=== PATIENT | female | born 1995 | race Caucasian/White ===

== ENCOUNTER 2021-01-25 10:10 | Outpatient (REF) | payer OTHER, SELFPAY ==
[2021-01-25 10:58] LABS: MANUAL DIFF FLAG NO
[2021-01-25 11:05] LABS: Basophils Percent Auto 0.6 % (0-2); Eosinophils Absolute Auto 0.1 X10*3/uL (0.0-0.4); Eosinophils Percent Auto 1.5 % (0-4); Hematocrit 36.1 % (37-47); Imm Gran Abs Auto 0.03 X10*3/uL (0.00-0.03); Imm Gran Pct Auto 0.4 % (0.0-0.4); Lymphocytes Absolute Auto 2.2 X10*3/uL (1.2-4.9); Lymphocytes Percent Auto 30.8 % (20-40); Mean Corpuscular HGB Conc 33.2 g/dl (31.0-35.0); Mean Corpuscular Hemoglobin 30.2 pg (27.0-33.0); Mean Corpuscular Volume 90.7 fL (80-98); Mean Platelet Volume 10.8 fL (9.4-12.3); Monocytes Absolute Auto 0.3 X10*3/uL (0.1-1.2); Monocytes Percent Auto 4.6 % (2-11); Neutrophils Absolute Auto 4.5 X10*3/uL (2.0-8.3); Neutrophils Percent Auto 62.1 % (45-73); Platelet Count 295 X10*3/uL (160-400); Red Blood Count 3.98 X10*6/uL (4.20-5.50); Red Cell Distribution Width 12.5 % (11.0-16.0); White Blood Count 7.2 X10*3/uL (4.8-10.8)
[2021-01-25 11:23] LABS: Alanine Aminotransferase 11 U/L (0-31); Albumin Level 4.5 g/dL (3.5-5.0); Alkaline Phosphatase 47 U/L (39-117); Anion Gap 12 (12-20); Aspartate Amino Transferase 11 U/L (5-31); Bilirubin Total 0.6 mg/dL (0.0-1.0); Blood Urea Nitrogen 9 mg/dL (9-16); Calcium 9.5 mg/dL (8.4-10.2); Carbon Dioxide 24 mmol/L (22-29); Chloride 107 mmol/L (96-108); Cholesterol 146 mg/dL; Estimated Glomerular Filt Rate > 60; Glucose Fasting 85 mg/dL (60-99); HDL Cholesterol 48 mg/dL; Iron 98 mcg/dL (30-160); LDL Cholesterol Calculated 89 mg/dl; Percent Iron Saturation 30 % (15-50); Potassium 4.8 mmol/L (3.3-5.1); Sodium 138 mmol/L (135-145); Total Iron Binding Capacity 332 mcg/dL (228-428); Total Protein 7.4 g/dL (6.5-8.0); Triglycerides 48 mg/dL; Unsaturated Iron Binding 234 ug/dL
[2021-01-25 11:41] LABS: Estimated Average Glucose 88 mg/dL; Hemoglobin A1c % 4.7 %
[2021-01-25 11:46] LABS: Ferritin 18 ng/mL (10-122); TSH reflex Free T4 0.94 uIU/mL (0.32-4.0); Vitamin D 25-OH Total 15.1 ng/mL (>30)
[2021-01-25 12:13] LABS: Folate 11.7 ng/mL (> or = 4.0); Vitamin B12 292 pg/mL (200-900)
[2021-01-25 13:45] LABS: Glucose Urine UA NEG (NEG); Leukocyte Esterase Urine NEG (NEG); Nitrite Urine NEG (NEG); Urine Blood NEG (NEG); Urine Ketones NEG (NEG); Urine Protein NEG (NEG-TRACE)
[2021-01-25 13:55] LABS: Appearance Urine CLEAR; Color Urine STRAW
== END 2021-01-25 10:11 | disposition home or self-care (01) ==
LOC: HO.LAB 10:10
PROVIDERS: PCP Internal Medicine; Visit Provider Nurse Practitioner Family
DX: R25.1 Tremor, unspecified (principal); Z13.1 Encounter for screening for diabetes mellitus
CPT/HCPCS: 36415; 80053; 80061; 81003; 82306; 82607; 82728; 82746; 83036; 83540; 84443; 85025

== ENCOUNTER 2021-02-15 09:30 | Outpatient (REF) | payer OTHER, SELFPAY ==
[2021-02-16 02:04] LABS: CT PCR NOT DETECTED (Not Detect.); NG PCR NOT DETECTED (Not Detect.)
[2021-02-16 13:35] LABS: BV Int Neg Control Negative (Negative); BV Int Pos Control Positive (Positive)
== END 2021-02-15 09:31 | disposition home or self-care (01) ==
LOC: HO.LAB 09:30
PROVIDERS: Visit Provider Advanced Practice Midwife
DX: Z01.411 Encounter for gynecological examination (general) (routine) with abnormal findings (principal); Z11.3 Encounter for screening for infections with a predominantly sexual mode of transmission; N89.8 Other specified noninflammatory disorders of vagina; Z20.2 Contact with and (suspected) exposure to infections with a predominantly sexual mode of transmission
CPT/HCPCS: 87480; 87491; 87510; 87591; 87660; 88142

== ENCOUNTER 2021-02-18 11:52 | Outpatient (REF) | payer OTHER, SELFPAY ==
--- NOTE | ~2021-02-18 | XR_ITS ---
EXAMINATION: XR LUMBOSACRAL SPINE CLINICAL INFORMATION: Lower back pain. COMPARISON: None TECHNIQUE: Three views of the lumbosacral spine. FINDINGS: The vertebral bodies and posterior elements are normal. The disc spaces are preserved and the vertebral alignment is normal. The paraspinal soft tissues are normal. XR/XR lumbar spine 2-3V IMPRESSION: Unremarkable examination.
== END 2021-02-18 11:53 | disposition home or self-care (01) ==
LOC: HO.XRAY 11:52
PROVIDERS: PCP Internal Medicine; Visit Provider Internal Medicine
DX: M54.5 Low back pain (principal)
CPT/HCPCS: 72100

== ENCOUNTER 2021-04-02 08:09 | Outpatient (REF) | payer OTHER, SELFPAY ==
[2021-04-05 12:21] LABS: TS Negative Control Passed; TS Panel A 0; TS Panel B 2; TS Positive Control Passed; TSpotTB Negative (SeeBelow)
== END 2021-04-02 08:10 | disposition home or self-care (01) ==
LOC: HO.LAB 08:09
PROVIDERS: PCP Internal Medicine; Visit Provider Internal Medicine
DX: Z11.1 Encounter for screening for respiratory tuberculosis (principal)
CPT/HCPCS: 36415; 86481

== ENCOUNTER 2021-11-28 11:13 | Outpatient (REF) | payer OTHER, SELFPAY | END 2021-11-28 11:14 | disposition home or self-care (01) | LOC: HO.LAB 11:13 | PROVIDERS: Visit Provider Advanced Practice Midwife | DX: Z12.4 Encounter for screening for malignant neoplasm of cervix (principal); N94.89 Other specified conditions associated with female genital organs and menstrual cycle; R14.0 Abdominal distension (gaseous); Z87.42 Personal history of other diseases of the female genital tract | CPT/HCPCS: 88142; 99212 ==

== ENCOUNTER 2022-04-08 10:50 | Outpatient (REF) | payer OTHER, SELFPAY ==
[2022-04-08 12:34] LABS: Vitamin D 25-OH Total 16.3 ng/mL (>30)
[2022-04-08 12:44] LABS: Alanine Aminotransferase 8 U/L (0-31); Albumin Level 4.4 g/dL (3.5-5.0); Alkaline Phosphatase 41 U/L (39-117); Anion Gap 14 (12-20); Aspartate Amino Transferase 8 U/L (5-31); Bilirubin Total 0.5 mg/dL (0.0-1.0); Blood Urea Nitrogen 7 mg/dL (9-16); Calcium 9.4 mg/dL (8.4-10.2); Carbon Dioxide 22 mmol/L (22-29); Chloride 108 mmol/L (96-108); Cholesterol 142 mg/dL; Estimated Glomerular Filt Rate > 60; Glucose Fasting 81 mg/dL (60-99); HDL Cholesterol 40 mg/dL; LDL Cholesterol Calculated 89 mg/dl; Potassium 4.7 mmol/L (3.3-5.1); Sodium 139 mmol/L (135-145); Total Protein 7.2 g/dL (6.5-8.0); Triglycerides 65 mg/dL
[2022-04-08 13:26] LABS: Folate 13.1 ng/mL (> or = 4.0); Vitamin B12 462 pg/mL (200-900)
== END 2022-04-08 10:51 | disposition home or self-care (01) ==
LOC: HO.LAB 10:50
PROVIDERS: PCP Internal Medicine; Visit Provider Internal Medicine
DX: Z00.00 Encounter for general adult medical examination without abnormal findings (principal); E53.8 Deficiency of other specified B group vitamins; E55.9 Vitamin D deficiency, unspecified
CPT/HCPCS: 36415; 80053; 80061; 82306; 82607; 82746

== ENCOUNTER 2023-04-06 08:49 | Outpatient (AMB) | payer OTHER, SELFPAY ==
--- NOTE | 2023-04-06 08:52 | MHC.PC.OV ---
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 Accompanied by: Self / Same As Patient Allergies No Known Allergies Allergy (Verified 04/06/23 09:02) Medication List - Last Reconciled 04/06/23 by Rosy Melchor MD cetirizine (Zyrtec) 10 mg PO DAILY PRN cholecalciferol (vitamin D3) 25 mcg PO DAILY 90 days Tobacco use date assessed: 04/06/23 Dental Screening Dental Screen Date: 04/06/23 Did you have a dental visit in the last 12 months?: Yes Did you have a dental problem in the last 6 months where you did not have access to dental care?: No Was dental information given to patient?: Patient has dentist HPI HPI Comments History of Present Illness Details This is a 27-year-old female that comes for her physical exam. Last Pap smear was November 2021. No chest pain or shortness of breath. Doing well. [facility] Medical History ADHD Allergic rhinitis Hypovitaminosis D Insomnia Lumbar pain Screening for diabetes mellitus Shaky Surgical History No pertinent past surgical history Family History Father No problems noted. Mother Alive and well Osteoporosis Maternal Grandmother Diabetes Maternal Grandfather Diabetes Paternal Grandmother Diabetes Hypertension Paternal Grandfather Diabetes Hypertension Paternal Aunt Thyroid cancer Family/Other Anxiety Social History Housing: House Alcohol intake: never Patient Tobacco Use Status: Former Tobacco user e-Cigarette/Vaping Use: Former Use Second Hand Smoke Exposure: No service: No Current occupational status: employed and student Current occupational exposures/hazards: No Cognitive needs: No Hearing needs: No Vision needs: Yes Female Reproductive History Menstrual Age of Menarche: 9 Questionnaire PHQ-9 Over the last 2 weeks, how often have you been bothered by any of the following problems? 1. Little interest or pleasure in doing things: not at all 2. Feeling down, depressed, or hopeless: several days 3. Trouble falling or staying asleep, or sleeping too much: not at all 4. Feeling tired or having little energy: not at all 5. Poor appetite or overeating: not at all 6. Feeling bad about yourself - or that you are a failure or have let yourself or your family down: not at all 7. Trouble concentrating on things, such as reading the newspaper or watching television: not at all 8. Moving or speaking so slowly that other people could have noticed. Or the opposite - being so fidgety or restless that you have been moving around a lot more than usual: not at all 9. Thoughts that you would be better off or of hurting yourself in some way: not at all Total score: 1 Depression Screening Interpretation: Negative 17715 - PHQ-9 Billing: Yes Source: Developed by Drs. Romario Millan, Chary Decker, Genaro Goodwin and colleagues, with an educational mireya from [employer]. Thrive Questionnaire Date Thrive assessed: 04/06/23 I am a: Patient What is your living situation today?: I have a steady place to live Within the past 12 months, did the food you bought not last and you didn't have the money to get more?: Never true Within the past 12 months, did you worry whether your food would run out before you got money to buy more?: Never true Do you have trouble paying for medicines?: No Do you have trouble getting transportation to medical appointments?: No Do you have trouble paying your heating and electricity bill?: No Do you have trouble taking care of your child, family member or friend?: No Do you have trouble with day-to-day activities such as bathing, preparing meals, shopping, managing finances, etc.?: No Are you currently unemployed and looking for a job?: No Are you interested in more education?: No Please select the resources that you would like help with: None Currently or been in a relationship where the following occur: no concerns reported AUDIT C Alcohol Use Questionnaire (AUDIT-C) 1. How often do you have a drink containing alcohol?: Never Total Score: 0 Score Reviewed/Action Taken: No FIONA-7 AMB Questionnaire FIONA-7 Date FIONA - 7 assessed: 04/06/23 Feeling nervous, anxious, or on edge: 0 = Not at all Not being able to stop or control worryin = Not at all Worrying too much about different things: 0 = Not at all Trouble relaxin = Not at all Being so restless that it is hard to sit still: 0 = Not at all Becoming easily annoyed or irritable: 0 = Not at all Feeling afraid as if something awful might happen: 0 = Not at all Total FIONA-7 score (0-4 normal; 5-9 mild; 10-14 moderate; 15-21 severe): 0 Source: Developed by Drs. Romario Millan, Chary Decker, Genaro Goodwin and colleagues, with an educational mireya from [employer]. FIONA-7 Assessment Billing FIONA-7 Assessment Tool: FIONA-7 Assessment 37184 Review of Systems Const All systems reviewed & are unremarkable except as noted in HPI and below Eyes Reports no additional complaints, Denies change in vision and Denies other visual disturbances Card Denies chest pain at rest, Denies chest pain with activity, Denies edema, Denies irregular heart rhythm, Denies claudication, Denies dyspnea, Denies dyspnea on exertion, Denies orthopnea, Denies paroxysmal nocturnal dyspnea and Denies slow heart rate Resp Denies cough, Denies dyspnea and Denies dyspnea on exertion GI Denies abdominal pain, Denies change in bowel habits, Denies excessive flatus, Denies nausea and Denies vomiting Denies urinary incontinence, Denies urinary hesitancy and Denies urinary urgency Musc Denies abnormal gait, Denies atrophy, Denies deformity and Denies limited range of motion Skin/Breast Denies bleeding lesions, Denies changing lesions and Denies rash Neuro Denies abnormal gait and Denies lack of coordination Physical exam (Primary Care) Vital Signs: Last Vital Signs BP 102/64 04/06/23 08:54 BMI result Body Mass Index 25.3 Tobacco/Smoking Status: Tobacco use Status Tobacco use date assessed 04/06/23 04/06/23 08:58 Patient Tobacco Use Status Former Tobacco user 04/06/23 08:58 e-Cigarette/Vaping Use Former Use 04/06/23 08:58 PHQ-9: PHQ-9 Score PHQ-9: Total score 1 04/06/23 08:58 Depression Screening Interpretation: Negative Thrive Assessment: Date of Thrive Assessment Date Thrive assessed 04/06/23 04/06/23 08:58 Currently or been in a relationship where the following occur: no concerns reported Const Orientation/consciousness: patient oriented x3 HENMT Head: Yes normal to inspection, Yes normocephalic and Yes atraumatic Ears: external ears normal Eyes General: appearance normal, both eyes and all related structures Eyelids: Yes eyelids normal Conjunctivae: conjunctivae normal Neck Neck: Yes normal visual inspection and Yes supple Resp Effort & Inspection: normal respiratory effort Auscultation: clear to auscultation bilaterally Cardio Jugular venous distension: no JVD Rate: regular rate Rhythm: regular rhythm Heart sounds: S1 normal heart sound present and S2 normal heart sound present GI Inspection: Yes normal to inspection Palpation (GI): Soft to palpation and nontender Auscultation: normal bowel sounds Skin General skin exam: no rashes or lesions noted Neuro General: patient oriented x3 and no focal motor deficits Extrem General: Yes full ROM Psych Appearance: grossly normal Assessment and Plan Assessment & Plan (1) Encounter for physical examination: Code(s): Z00.00 - Encounter for general adult medical examination without abnormal findings Plan: Repeat in a year. Orders: Orders Vitamin B12 and Folate Today E53.8 - Deficiency of other specified B group vitamins Comprehensive [place]. Panel Fast Today Z00.00 - Encounter for general adult medical examination without abnormal findings IRON PROFILE Today D64.9 - Anemia, unspecified Lipid Panel Today E78.5 - Hyperlipidemia, unspecified, Z00.00 - Encounter for general adult medical examination without abnormal findings Vitamin D 25-OH Total Today E55.9 - Vitamin D deficiency, unspecified Complete Blood Count Auto Diff Today D64.9 - Anemia, unspecified Hepatitis B Profile Today Z23 - Encounter for immunization Mumps Virus IgG Antibody Today Z23 - Encounter for immunization Rubeola IgG (Measles) Today Z23 - Encounter for immunization Rubella IgG Antibody Today Z23 - Encounter for immunization T Spot TB Today Z11.1 - Encounter for screening for respiratory tuberculosis Varicella IgG Antibody Today Z23 - Encounter for immunization Coding Level of Care Code Est Pt Prev Care 18-39y(93455) Diagnoses Encounter for physical examination Z00.00 Additional Codes FIONA-7 Assessment Billing - FIONA-7 Assessment Tool: FIONA-7 Assessment 70570 ([id number]) Time Spent (min) 31
[2023-04-06 08:54] VITALS: BP 102/64; BMI 25.3
== END 2023-04-06 09:12 | disposition home or self-care (01) ==
PROVIDERS: PCP Internal Medicine; Visit Provider Internal Medicine
DX: Z00.00 Encounter for general adult medical examination without abnormal findings (principal)
CPT/HCPCS: 99395

== ENCOUNTER 2023-04-07 09:12 | Outpatient (REF) | payer OTHER, SELFPAY ==
[2023-04-07 09:27] LABS: MANUAL DIFF FLAG NO
[2023-04-07 10:17] LABS: Basophils Percent Auto 0.6 % (0-2); Eosinophils Absolute Auto 0.1 X10*3/uL (0.0-0.4); Eosinophils Percent Auto 1.8 % (0-4); Hematocrit 36.5 % (37.0-47.0); Imm Gran Abs Auto 0.01 X10*3/uL (0.00-0.03); Imm Gran Pct Auto 0.1 % (0.0-0.4); Lymphocytes Absolute Auto 2.1 X10*3/uL (1.2-4.9); Lymphocytes Percent Auto 31.5 % (20-40); Mean Corpuscular HGB Conc 32.9 g/dl (31.0-35.0); Mean Corpuscular Hemoglobin 30.3 pg (27.0-33.0); Mean Corpuscular Volume 92.2 fL (80.0-98.0); Mean Platelet Volume 10.8 fL (9.4-12.3); Monocytes Absolute Auto 0.5 X10*3/uL (0.1-1.2); Monocytes Percent Auto 6.6 % (2-11); Neutrophils Percent Auto 59.4 % (45-73); Platelet Count 250 X10*3/uL (160-400); Red Blood Count 3.96 X10*6/uL (4.20-5.50); Red Cell Distribution Width 12.1 % (11.0-16.0); White Blood Count 6.8 X10*3/uL (4.8-10.8)
[2023-04-07 11:03] LABS: Alanine Aminotransferase 13 U/L (0-31); Albumin Level 4.2 g/dL (3.5-5.0); Alkaline Phosphatase 44 U/L (39-117); Anion Gap 10 (12-20); Aspartate Amino Transferase 12 U/L (5-31); Bilirubin Total 0.3 mg/dL (0.0-1.0); Blood Urea Nitrogen 10 mg/dL (9-16); Calcium 9.1 mg/dL (8.4-10.2); Carbon Dioxide 24 mmol/L (22-29); Chloride 109 mmol/L (96-108); Cholesterol 139 mg/dL (<200); Estimated Glomerular Filt Rate > 60; Glucose Fasting 83 mg/dL (60-99); HDL Cholesterol 45 mg/dL (>40); Iron 86 mcg/dL (30-160); LDL Cholesterol Calculated 84 mg/dL (<100); Percent Iron Saturation 29 % (15-50); Potassium 4.3 mmol/L (3.3-5.1); Sodium 139 mmol/L (135-145); Total Iron Binding Capacity 298 mcg/dL (228-428); Total Protein 6.9 g/dL (6.5-8.0); Triglycerides 53 mg/dL (<150); Unsaturated Iron Binding 212 ug/dL
[2023-04-07 11:12] LABS: Vitamin D 25-OH Total 25.2 ng/mL (>30)
[2023-04-07 11:21] LABS: HBS Num1 > 1000.00 mIU/mL (0-7.99); HBsAGNum1 0.42 S/CO (0.00-0.99); Hepatitis B Core Antibody Nonreactive (Nonreactive); Hepatitis B Surface Antigen Negative (Negative); ~Hepatitis B Surface Antibody REACTIVE (Nonreactive)
[2023-04-07 11:25] LABS: Folate 11.3 ng/mL (> or = 4.0); Vitamin B12 461 pg/mL (200-900)
[2023-04-09 01:19] LABS: Rubella IgG Antibody 2.92 Index
[2023-04-09 20:38] LABS: TS Negative Control Passed; TS Panel A 0; TS Panel B 0; TS Positive Control Passed; TSpotTB Negative (Negative)
== END 2023-04-07 09:13 | disposition home or self-care (01) ==
LOC: HO.LAB 09:12
PROVIDERS: PCP Internal Medicine; Visit Provider Internal Medicine
DX: Z00.00 Encounter for general adult medical examination without abnormal findings (principal); D64.9 Anemia, unspecified; E55.9 Vitamin D deficiency, unspecified; E53.8 Deficiency of other specified B group vitamins; E78.5 Hyperlipidemia, unspecified; Z11.1 Encounter for screening for respiratory tuberculosis
CPT/HCPCS: 36415; 80053; 80061; 82306; 82607; 82746; 83540; 85025; 86481; 86704; 86706; 86735; 86762; 86765; 86787; 87340

== ENCOUNTER 2023-07-28 15:41 | Outpatient (REF) | payer OTHER, SELFPAY ==
[2023-07-29 04:49] LABS: HBS Num1 > 1000.00 mIU/mL (0-7.99); HBsAGNum1 0.36 S/CO (0.00-0.99); Hepatitis B Core Antibody Nonreactive (Nonreactive); Hepatitis B Surface Antigen Negative (Negative); ~Hepatitis B Surface Antibody REACTIVE (Nonreactive)
== END 2023-07-28 15:42 | disposition home or self-care (01) ==
LOC: HO.LAB 15:41
PROVIDERS: PCP Internal Medicine; Visit Provider Internal Medicine
DX: Z01.84 Encounter for antibody response examination (principal)
CPT/HCPCS: 36415; 86704; 86706; 87340

== ENCOUNTER 2023-08-28 10:11 | Outpatient (AMB) | payer OTHER, SELFPAY ==
[2023-08-28 11:22] VITALS: BP 120/72; PULSE 73; TEMP 36.6; O2SAT 96; BMI 24.8
--- NOTE | 2023-08-28 11:22 | AM.OFFWIN_ITS ---
Intake Vital Signs 08/28/23 11:22 Height 5 ft 5 in Weight 149 lb BMI 24.8 BP 120/72 Blood Pressure Location Lt brachial Position Sitting Pulse 73 Pulse Source Pulse Oximeter Temp 97.9 F Temp Source Temporal Artery Scan Pulse Oximetry (%) 96 Oxygen Delivery Method Room Air Intake Visit Reasons: EP Lower back pain [id number] Intake Note: pt is here today for lower back pain started thursday Patient Tobacco Use Status: Former Tobacco user Allergies No Known Allergies Allergy (Verified 08/28/23 11:22) Do you need a note to return to daycare/school/sports/work: Yes HPI HPI Comments History of Present Illness Details This is a 27-year-old female who presented to the office complaining of low back pain x4 days. Patient states she was cleaning her floor and her back ?gave out? when she stood up. She had some mild low back pain since then she has been utilizing acetaminophen/ibuprofen and heat without significant relief. She states that her back ?gave out? again yesterday when she bent over and stood up quickly. She denies any numbness/weakness/paresthesias of her lower extremities. She denies any saddle anesthesias. She denies any bowel/bladder incontinence/retention. She denies any fevers or chills. [facility] Medical History ADHD Allergic rhinitis Hypovitaminosis D Insomnia Lumbar pain Screening for diabetes mellitus Shaky Surgical History No pertinent past surgical history Family History (Updated 04/06/23 @ 09:04 by Rosy Melchor MD) Father No problems noted. Mother Alive and well Osteoporosis Maternal Grandmother Diabetes Maternal Grandfather Diabetes Paternal Grandmother Diabetes Hypertension Paternal Grandfather Diabetes Hypertension Paternal Aunt Thyroid cancer Family/Other Anxiety Social History Housing: House Alcohol intake: never Patient Tobacco Use Status: Former Tobacco user e-Cigarette/Vaping Use: Former Use Second Hand Smoke Exposure: No service: No Current occupational status: employed and student Current occupational exposures/hazards: No Cognitive needs: No Hearing needs: No Vision needs: Yes Female Reproductive History Menstrual Age of Menarche: 9 Review of Systems Const All systems reviewed & are unremarkable except as noted in HPI and below Reports no additional complaints Eyes Reports no additional complaints ENT Reports no additional complaints Card Reports no additional complaints Resp Reports no additional complaints GI Reports no additional complaints Reports no additional complaints Musc Reports no additional complaints Skin/Breast Reports system reviewed and no additional complaints, except as documented Neuro Reports no additional complaints Psych Reports no additional complaints Endo Reports no additional complaints Sam/Lymph Reports no additional complaints Aller/Immun Reports no additional complaints Physical Exam Vital Signs: Last Vital Signs Temp 97.9 F 08/28/23 11:22 Pulse 73 08/28/23 11:22 BP 120/72 08/28/23 11:22 Pulse Ox 96 08/28/23 11:22 Oxygen Delivery Method Room Air 08/28/23 11:22 BMI result Body Mass Index 24.8 Const Other: Vital signs reviewed. Constitutional: Non-toxic appearing. No acute distress. Well-developed and well-nourished. HEENT: Normocephalic and atraumatic. Skin: Warm and dry. No rashes or lesions noted. Neck: Full and painless range of motion. No cervical lymphadenopathy. Cardio: Regular rate and rhythm. No murmurs, gallops, or rubs. No lower extremity edema. No JVD. Pulmonary: No respiratory distress. No accessory muscle usage. Clear to auscultation bilaterally without wheezing, crackles, or rhonchi. Gastrointestinal: Soft, nontender, and nondistended in all 4 quadrants. Normoactive bowel sounds in all 4 quadrants. Genitourinary: No CVA tenderness. Musculoskeletal: No midline or spinous process tenderness to palpation of the lumbar spine. There is mild tenderness to palpation and palpable muscle spasms with bilateral paraspinal musculature of the lumbar spine. Negative straight leg raise bilaterally. Neuro: Alert and oriented x4. Cranial nerves 2-12 grossly intact. No focal deficits appreciated. Psych: Normal mood and affect. Results AMB Urinalysis, Automated UA Leukoctes 500 Subhash/uL Last Edit by Jassi Gonsalves CMA on 08/28/23 11:4 2 UA Nitrite Negative Last Edit by Jassi Gonsalves CMA on 08/28/23 11:42 UA Urobilinogen 0.2 mg/dL Last Edit by Jassi Gonsalves CMA on 08/28/23 11 :42 UA Protein 0 mg/dL Last Edit by Jassi Gonsalves CMA on 08/28/23 11:42 UA pH 6.0 Last Edit by Jassi Gonsalves CMA on 08/28/23 11:42 UA Blood 0 Alvin/uL Last Edit by Jassi Gonsalves CMA on 08/28/23 11:42 UA Specific [place] 1.020 Last Edit by Jassi Gonsalves CMA on 08/28/23 11:42 UA Ketone Negative Last Edit by Jassi Gonsalves CMA on 08/28/23 11:42 UA Bilirubin 0 mg/dL Last Edit by Jassi Gonsalves CMA on 08/28/23 11:42 UA Glucose 0 mg/dL Last Edit by Jassi Gonsalves CMA on 08/28/23 11:42 Results Reviewed Results Reviewed: Laboratory Last Values Urine pH (Auto) 6.0 08/28/23 11:41 Specific [place] (Auto) 1.020 08/28/23 11:41 Urine Protein (Auto) 0 mg/dL 08/28/23 11:41 Glucose (UA)(Auto) 0 mg/dL 08/28/23 11:41 Urine Ketones (Auto) Negative 08/28/23 11:41 Urine Blood (Auto) 0 Alvin/uL 08/28/23 11:41 Urine Nitrite (Auto) Negative 08/28/23 11:41 Urine Bilirubin (Auto) 0 mg/dL 08/28/23 11:41 Urine Urobilinogen (Auto) 0.2 mg/dL 08/28/23 11:41 Leukocyte Esterase (Auto) 500 Subhash/uL 08/28/23 11:41 Assessment & Plan Assessment & Plan (1) Lumbar back sprain: Code(s): S33.5XXA - Sprain of ligaments of lumbar spine, initial encounter Qualifiers: Encounter type: initial encounter Qualified Code(s): S33.5XXA - Sprain of ligaments of lumbar spine, initial encounter Plan: This is a 27-year-old female presenting to the office complaining of low back pain x4 days. The patient denies any red flag symptoms as detailed above. On physical examination, there is mild tenderness to palpation and palpable muscle spasms of the bilateral paraspinal musculature of the lumbar spine without any midline or spinous process tenderness to palpation. Patient very likely suffered a sprain/strain of her lumbar paraspinal musculature. Recommended symptomatic management including rest/activity modification, heat/ice to the area, PO naproxen 500 mg twice daily x7 days, and PO methocarbamol 750 mg 3 times daily as needed for muscle spasms x7 days. Patient was advised to follow- up here or proceed directly to the emergency room if she were to develop pe rsistent/worsening symptoms such as any red flag symptoms, numbness/weakness/paresthesias of her extremities, or worsening back pain. Orders: Orders AMB Urinalysis Automated Today Z13.9 - Encounter for screening, unspecified Medications: New methocarbamol 750 mg PO TID PRN 14 tabs 0RF muscle spasms naproxen 500 mg PO BID 14 tabs 0RF Coding Level of Care Code Est Pt Level 3 (20994) Diagnoses Lumbar sprain, initial encounter S33.5XXA Encounter type: initial encounter
== END 2023-08-28 12:52 | disposition home or self-care (01) ==
PROVIDERS: PCP Internal Medicine; Visit Provider Physician Assistant Medical
DX: S33.5XXA Sprain of ligaments of lumbar spine, initial encounter (principal); M54.50 Low back pain, unspecified
CPT/HCPCS: 81003; 99213

== ENCOUNTER 2023-10-08 09:40 | Outpatient (AMB) | payer OTHER, SELFPAY ==
[2023-10-08 09:45] VITALS: BP 110/60; BMI 25.0
--- NOTE | 2023-10-08 09:45 | MHC.OFFVIS ---
Intake Vital Signs 10/08/23 09:45 Height 5 ft 5 in Weight 150 lb BMI 25.0 BP 110/60 Intake Visit Reasons: ? 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 bv HPI Details Patient is here because various concerns she thought she noticed of kind of a grayish discharge after intercourse she was using condoms although 1 had fallen off at 1 point and gotten lost in the recent past she has been with a new partner since April. Additionally there was a kind of a trash she odor that she did not like and so she is worried about STDs versus bv. She has been using condoms for control she was on the Nexplanon and on kenya and a similar pill to kenya in the past but found that she felt sort of down with them like premenstrual all the time she gets premenstrual symptoms in terms of emotional feeling and everything any way every month. She would be willing to get on some method of control and would be interested in it because she has not thinking about having a baby any time in the next few years maybe before she is 35. Additionally it has been hurting when she has sex she normally voids before she has sex the last time it hurt her was the last time she had sex about 2 weeks ago and it was with deep penetration. Patient believes her periods started yesterday with some spotting but today during the exam it was revealed that there is no menses there at this very moment. [facility] Medical History Lumbar pain Hypovitaminosis D Screening for diabetes mellitus Shaky ADHD Allergic rhinitis Insomnia Surgical History No pertinent past surgical history Family History Father No problems noted. Mother Alive and well Osteoporosis Maternal Grandmother Diabetes Maternal Grandfather Diabetes Paternal Grandmother Diabetes Hypertension Paternal Grandfather Diabetes Hypertension Paternal Aunt Thyroid cancer Family/Other Anxiety Social History Housing: House Alcohol intake: never Patient Tobacco Use Status: Former Tobacco user e-Cigarette/Vaping Use: Former Use Second Hand Smoke Exposure: No service: No Current occupational status: employed and student Current occupational exposures/hazards: No Cognitive needs: No Hearing needs: No Vision needs: Yes Female Reproductive History Menstrual Age of Menarche: 9 Duration of menses: 3-5 days Date of last menstrual period: 10/07/23 control method: none and condoms Full term: 0 Date of last pap smear: 11/28/21 (negative) History of abnormal pap smear: No Physical Exam Vital Signs: Last Vital Signs BP 110/60 10/08/23 09:45 BMI result Body Mass Index 25.0 Other: Challenging to visualize speculum using pediatric speculum and redundant vaginal tissue patient says she lost about 30 lb. Cervix is smooth nontender mobile uterus is midposition mobile nontender bladder maybe slightly full patient feels it is on clear to this provider. Adnexa nontender not enlarged very good tone. External Female Exam: normal external appearance Speculum Exam - Vagina: normal appearance of the vagina and normal vaginal discharge Speculum Exam - Cervix: normal appearance of the cervix Bimanual exam- vagina & uterus: normal bimanual exam, uterine size normal, consistency normal, uterine mobility normal, uterine shape normal and non-tender Bimanual Exam- Adnexa, other: normal adnexae, no masses and No adnexal tenderness Assessment & Plan Assessment & Plan (1) Potential exposure to STD: Code(s): Z20.2 - Contact with and (suspected) exposure to infections with a predominantly sexual mode of transmission (2) Dyspareunia in female: Code(s): N94.10 - Unspecified dyspareunia (3) Urinary frequency: Code(s): R35.0 - Frequency of micturition (4) BCP ( control pills) initiation: Code(s): Z30.011 - Encounter for initial prescription of contraceptive pills Plan Discussed possibilities of different infections checking today for gonorrhea chlamydia trichomoniasis Gardnerella and Valeria discharge today is scant white and there is no menses whatsoever though the patient thought was starting yesterday. Discussed checking for other STIs and placed orders for HIV hep B hep C and syphilis she will go to the lab now We will rule out urinary tract infection could possibly that that is the source of her discomfort although it was really just with sex. She does think she voids frequently especially at night so possibly it may be an issue Also discussed control she would be interested in starting something though undecided and after some discussion about the side effects and her premenstrual symptoms, she decided the while a a hormone free IUD might be free of any hormone side effects for her she is nervous about that so but she is interested in starting pills discussed that at the start of her. Is a good time to start the pills and now would be good though since there was no evidence of menses there at this moment she should wait until she is actually bleeding and, and start the pills whether it is today or tomorrow when her period comes take 1 pill every single day all through the pack and we will see her in 3 months to see how she is doing also discussed safer sex she generally uses condoms the only time she did not is when 1 fell off and it fell off inside.. Orders: Orders Hepatitis C Antibody Today N94.10 - Unspecified dyspareunia, R35.0 - Frequency of micturition, Z20.2 - Contact with and (suspected) exposure to infections with a predominantly sexual mode of transmission Hepatitis B Surface Antigen Today N94.10 - Unspecified dyspareunia, R35.0 - Frequency of micturition, Z20.2 - Contact with and (suspected) exposure to infections with a predominantly sexual mode of transmission HIV Ab/Ag Today N94.10 - Unspecified dyspareunia, R35.0 - Frequency of micturition, Z20.2 - Contact with and (suspected) exposure to infections with a predominantly sexual mode of transmission Syphilis Screen Today N94.10 - Unspecified dyspareunia, R35.0 - Frequency of micturition, Z20.2 - Contact with and (suspected) exposure to infections with a predominantly sexual mode of transmission Urine Culture Today N94.10 - Unspecified dyspareunia, R35.0 - Frequency of micturition, Z20.2 - Contact with and (suspected) exposure to infections with a predominantly sexual mode of transmission Medications: New desog-e.estradiol/e.estradiol 0.15-0.02 mgx21 /0.01 mg x 5 Start with full period 1 tab PO DAILY 84 tabs 3RF Coding Level of Care Code Est Pt Level 3 (34162) Diagnoses Potential exposure to STD Z20.2 Dyspareunia in female N94.10 Urinary frequency R35.0 BCP ( control pills) initiation Z30.011
== END 2023-10-08 10:25 | disposition home or self-care (01) ==
LOC: HO.HWSM 09:40
PROVIDERS: PCP Internal Medicine; Visit Provider Advanced Practice Midwife
DX: Z20.2 Contact with and (suspected) exposure to infections with a predominantly sexual mode of transmission (principal); N94.10 Unspecified dyspareunia; R35.0 Frequency of micturition; Z30.011 Encounter for initial prescription of contraceptive pills
CPT/HCPCS: 99213

== ENCOUNTER 2023-10-08 09:40 | Outpatient (REF) | payer OTHER, SELFPAY ==
[2023-10-09 03:50] LABS: CT PCR NOT DETECTED (Not Detect.); NG PCR NOT DETECTED (Not Detect.)
[2023-10-09 16:14] LABS: BV Int Neg Control Negative (Negative); BV Int Pos Control Positive (Positive)
== END 2023-10-08 09:41 | disposition home or self-care (01) ==
LOC: HO.LAB 09:40
PROVIDERS: PCP Internal Medicine; Visit Provider Advanced Practice Midwife
DX: Z01.419 Encounter for gynecological examination (general) (routine) without abnormal findings (principal); N89.8 Other specified noninflammatory disorders of vagina; N94.10 Unspecified dyspareunia; R35.0 Frequency of micturition; Z20.2 Contact with and (suspected) exposure to infections with a predominantly sexual mode of transmission; Z79.899 Other long term (current) drug therapy
CPT/HCPCS: 0353U; 87480; 87510; 87660; 99212

== ENCOUNTER 2023-10-08 10:44 | Outpatient (REF) | payer OTHER, SELFPAY ==
[2023-10-08 12:10] LABS: Syphilis Screen Nonreactive (Nonreactive)
[2023-10-08 12:14] LABS: HBsAGNum1 0.42 S/CO (0.00-0.99); HIV AB/AG Nonreactive (Nonreactive); HIV Num 1 0.05 S/CO (0.00-0.99); Hepatitis B Surface Antigen Negative (Negative); ~HepC Num1 0.12 S/CO (0.00-0.79); ~Hepatitis C Antibody Nonreactive (Nonreactive)
== END 2023-10-08 10:45 | disposition home or self-care (01) ==
LOC: HO.HHCL 10:44
PROVIDERS: Visit Provider Advanced Practice Midwife
DX: Z11.4 Encounter for screening for human immunodeficiency virus [HIV] (principal); Z20.2 Contact with and (suspected) exposure to infections with a predominantly sexual mode of transmission; N94.10 Unspecified dyspareunia; R35.0 Frequency of micturition
CPT/HCPCS: 36415; 86780; 86803; 87086; 87340; 87389

== ENCOUNTER 2024-01-08 10:06 | Outpatient (AMB) | payer OTHER, SELFPAY ==
[2024-01-08 10:08] VITALS: BP 116/60; BMI 25.0
--- NOTE | 2024-01-08 10:08 | MHC.OFFVIS ---
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 She feels like the pills have made her periods more regular and predictable and she also is noticing less premenstrual symptoms in terms of changes and she kind of likes that she feels a little bit but it is only for about a day where as before would last longer. she has not sexually active and has not been since the last time she was seen, so does not feel she has any need for pelvic exam or STD check her last exam was completely negative. 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 She does running and bent exercises to keep herself strong. She is family members in the [employer], so she feels good about this life choice. [facility] Medical History Lumbar pain Hypovitaminosis D Screening for diabetes mellitus Shaky ADHD Allergic rhinitis Insomnia Surgical History No pertinent past surgical history Family History Father No problems noted. Mother Alive and well Osteoporosis Maternal Grandmother Diabetes Maternal Grandfather Diabetes Paternal Grandmother Diabetes Hypertension Paternal Grandfather Diabetes Hypertension Paternal Aunt Thyroid cancer Family/Other Anxiety Social History (Reviewed 10/08/23 @ 10:01 by ASHLEY Barnhart Housing: House Alcohol intake: never Patient Tobacco Use Status: Former Tobacco user e-Cigarette/Vaping Use: Former Use Second Hand Smoke Exposure: No service: No Current occupational status: employed and student Current occupational exposures/hazards: No Cognitive needs: No Hearing needs: No Vision needs: Yes Female Reproductive History Menstrual Age of Menarche: 9 Duration of menses: 6-7 days control method: pills Total pregnancies: 0 Date of last pap smear: 11/29/21 (negative) History of abnormal pap smear: No Physical Exam Const General: healthy appearing, comfortable, no acute distress, well developed and alert Nutritional Appearance: average body habitus Orientation/consciousness: patient oriented x3 Limitations: no limitations HEENT Head: Yes normocephalic Neck Neck: Yes normal visual inspection Chest Chest palpation & inspection: normal inspection of the chest Breast/axilla inspection: normal inspection of the breasts and normal inspection of the axillae Breast/axilla palpation: normal palpation of the breasts and normal palpation of the axillae Resp Effort & Inspection: normal respiratory effort GI Inspection: Yes normal to inspection, No Abdominal wall edema and No distended Palpation (GI): Soft to palpation and nontender External Female Exam: normal external appearance Neuro General: patient oriented x3 Results Reviewed Results Reviewed: Name: Maral Dodson Age/Sex: 25/F Attending: Ella Atkinson CNM : 1995 Submitted by: Ella Atkinson CNM Copies to: MR #: [id number] Status: DEP REF Collected: 02/15/21 Location: .LAB Received: 02/18/21 Interpretation Unsatisfactory Scant cellularity. Abundant mucus. Clinical Information LMP: 01/29/21 Previous PAP test: 2018, wnl Material Received ThinPrep cervical Electronically Signed By: YANET Fernandez (ASCP) 02/19/21 1425 The Pap Test is a screening procedure with the inherent possibility of both false negative and false positive results. Results should be interpreted in the context of historic and current clinical findings. Reliability of the Pap Test is enhanced by performing the test on a regular repetitive basis. Patient: Fortunato Page 1 of 1 Name: Maral Dodson Age/Sex: 26/F Attending: Ella Atkinson CNM : 1995 Submitted by: Ella Atkinson CNM Copies to: MR #: [id number] Status: DEP REF Collected: 11/28/21 Location: .LAB Received: 11/29/21 Interpretation Satisfactory for evaluation. Negative for intraepithelial lesion or malignancy. Moderate inflammation. Clinical Information LMP: 11/09/21 Previous PAP test: 2020, Unsatisfactory Material Received ThinPrep-Cervical Electronically Signed By: YANET Fernandez Assessment & Plan Assessment & Plan (1) Well woman exam (no gynecological exam): Code(s): Z00.00 - Encounter for general adult medical examination without abnormal findings Category: Medical (2) Cervical cancer screening: Comment: 11/28/2021 Pap equals negative, has had the HPV vaccine. Next Pap due 2024. Code(s): Z12.4 - Encounter for screening for malignant neoplasm of cervix Category: Medical Plan Patient is here for obgyn specialist annual exam and pill check. She feels like the pills have made her periods more regular and predictable and she also is noticing less premenstrual symptoms in terms of changes and she kind of likes that she feels a little bit but it is only for about a day where as before would last longer. she has not sexually active and has not been since the last time she was seen, so does not feel she has any need for pelvic exam or STD check her last exam was completely negative. 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 She does running and bent exercises to keep herself strong. She is family members in the [employer], so she feels good about this life choice. She is happy on the control pills and very aware of the risks of DVTs and for that reason is staying active discussed keeping active also if she goes on long-term flights in the future. If she decided to stop the control pills it would be best to stop at the end of a pill pack. Medications: Refilled desog-e.estradiol/e.estradiol 0.15-0.02 mgx21 /0.01 mg x 5 Start with full period 1 tab PO DAILY 84 tabs 4RF Coding Level of Care Code Est Pt Prev Care 18-39y(92688) Diagnoses Well woman exam (no gynecological exam) Z00.00 Cervical cancer screening Z12.4
== END 2024-01-08 10:43 | disposition home or self-care (01) ==
LOC: HO.HWSM 10:06
PROVIDERS: PCP Internal Medicine; Visit Provider Advanced Practice Midwife
DX: Z01.419 Encounter for gynecological examination (general) (routine) without abnormal findings (principal)
CPT/HCPCS: 99395

== ENCOUNTER → 2024-01-08 10:06 | Outpatient (BNVA) | payer OTHER, SELFPAY | PROVIDERS: PCP Internal Medicine; Visit Provider Advanced Practice Midwife | DX: Z51.81 Encounter for therapeutic drug level monitoring (principal); Z01.419 Encounter for gynecological examination (general) (routine) without abnormal findings; Z12.4 Encounter for screening for malignant neoplasm of cervix; Z79.899 Other long term (current) drug therapy | CPT/HCPCS: 99395 ==

== ENCOUNTER 2024-03-08 13:09 | Outpatient (REF) | payer OTHER, SELFPAY ==
[2024-03-11 07:23] LABS: TS Negative Control Passed; TS Panel A 0; TS Panel B 1; TS Positive Control Passed; TSpotTB Negative (Negative)
== END 2024-03-08 13:10 | disposition home or self-care (01) ==
LOC: HO.LAB 13:09
PROVIDERS: PCP Internal Medicine; Visit Provider Internal Medicine
DX: Z11.1 Encounter for screening for respiratory tuberculosis (principal)
CPT/HCPCS: 36415; 86481

== ENCOUNTER 2024-04-12 07:35 | Outpatient (AMB) | payer OTHER, SELFPAY ==
--- NOTE | 2024-04-12 07:38 | MHC.PC.OV ---
Vital Signs 04/12/24 07:39 Height 5 ft 5 in Weight 151 lb BMI 25.1 BP 112/76 Blood Pressure Location Lt brachial Position Sitting Intake Visit Reasons: Annual Exam Intake Note: Patient here for an annual physical exam Source Inspector Required: No Accompanied by: Self / Same As Patient Allergies No Known Allergies Allergy (Verified 04/12/24 07:53) Medication List - Last Reconciled 04/12/24 by Rosy Melchor MD desog-e.estradiol/e.estradiol 0.15-0.02 mgx21 /0.01 mg x 5 1 tab PO DAILY Tobacco use date assessed: 04/12/24 Dental Screening Dental Screen Date: 04/12/24 Did you have a dental visit in the last 12 months?: Yes Did you have a dental problem in the last 6 months where you did not have access to dental care?: No Was dental information given to patient?: Patient has dentist HPI HPI Comments History of Present Illness Details This is a 28-year-old female with low vitamin-D that comes for her physical exam. Pap smear done 2021 was normal. She complains of occasional palpitations and labs will be ordered. Vitamin-D levels will also be ordered. Denies any chest pain or shortness on breath. No change in bowel or bladder habits. [facility] Medical History (Updated 04/12/24 @ 08:04 by Rosy Melchor MD) Lumbar pain Hypovitaminosis D Screening for diabetes mellitus Shaky ADHD Allergic rhinitis Insomnia Surgical History No pertinent past surgical history Family History Father No problems noted. Mother Alive and well Osteoporosis Maternal Grandmother Diabetes Maternal Grandfather Diabetes Paternal Grandmother Diabetes Hypertension Paternal Grandfather Diabetes Hypertension Paternal Aunt Thyroid cancer Family/Other Anxiety Social History Housing: House Alcohol intake: never Patient Tobacco Use Status: Former Tobacco user e-Cigarette/Vaping Use: Former Use Second Hand Smoke Exposure: No service: No Current occupational status: employed and student Current occupational exposures/hazards: No Cognitive needs: No Hearing needs: No Vision needs: Yes Female Reproductive History Menstrual Age of Menarche: 9 Questionnaire PHQ-9 Over the last 2 weeks, how often have you been bothered by any of the following problems? 1. Little interest or pleasure in doing things: not at all 2. Feeling down, depressed, or hopeless: not at all 3. Trouble falling or staying asleep, or sleeping too much: not at all 4. Feeling tired or having little energy: not at all 5. Poor appetite or overeating: not at all 6. Feeling bad about yourself - or that you are a failure or have let yourself or your family down: not at all 7. Trouble concentrating on things, such as reading the newspaper or watching television: not at all 8. Moving or speaking so slowly that other people could have noticed. Or the opposite - being so fidgety or restless that you have been moving around a lot more than usual: not at all 9. Thoughts that you would be better off or of hurting yourself in some way: not at all Total score: 0 Depression Screening Interpretation: Negative Depression Screening Done: Yes 81160 - PHQ-9 Billing: Yes Source: Developed by Drs. Romario Millan, Chary Decker, Genaro Goodwin and colleagues, with an educational mireya from [employer]. Thrive Questionnaire Date Thrive assessed: 04/12/24 I am a: Patient What is your living situation today?: I have a steady place to live Within the past 12 months, did the food you bought not last and you didn't have the money to get more?: Never true Within the past 12 months, did you worry whether your food would run out before you got money to buy more?: Never true Do you have trouble paying for medicines?: No Do you have trouble getting transportation to medical appointments?: No Do you have trouble paying your heating and electricity bill?: No Do you have trouble taking care of your child, family member or friend?: No Do you have trouble with day-to-day activities such as bathing, preparing meals, shopping, managing finances, etc.?: No Are you currently unemployed and looking for a job?: No Are you interested in more education?: No Please select the resources that you would like help with: None Currently or been in a relationship where the following occur: No concerns reported THRIVE Score: 0 AUDIT C Alcohol Use Questionnaire (AUDIT-C) 1. How often do you have a drink containing alcohol?: Never Total Score: 0 Score Reviewed/Action Taken: No FIONA-7 AMB Questionnaire FIONA-7 Date FIONA - 7 assessed: 04/12/24 Feeling nervous, anxious, or on edge: 0 = Not at all Not being able to stop or control worryin = Not at all Worrying too much about different things: 0 = Not at all Trouble relaxin = Not at all Being so restless that it is hard to sit still: 0 = Not at all Becoming easily annoyed or irritable: 0 = Not at all Feeling afraid as if something awful might happen: 0 = Not at all Total FIONA-7 score (0-4 normal; 5-9 mild; 10-14 moderate; 15-21 severe): 0 Source: Developed by Drs. Romario Millan, Chary Decker, Genaro Goodwin and colleagues, with an educational mireya from [employer]. FIONA-7 Assessment Billing FIONA-7 Assessment Tool: FIONA-7 Assessment 33684 Review of Systems Const All systems reviewed & are unremarkable except as noted in HPI and below Card Denies chest pain at rest, Denies chest pain with activity, Reports rapid heart rate, Denies edema, Denies irregular heart rhythm, Denies claudication, Denies dyspnea, Denies dyspnea on exertion, Denies orthopnea, Denies paroxysmal nocturnal dyspnea and Denies slow heart rate Resp Denies cough, Denies dyspnea and Denies dyspnea on exertion GI Denies abdominal pain, Denies change in bowel habits, Denies excessive flatus, Denies nausea and Denies vomiting Denies urinary incontinence, Denies urinary hesitancy and Denies urinary urgency Musc Denies abnormal gait, Denies atrophy, Denies deformity and Denies limited range of motion Skin/Breast Denies bleeding lesions, Denies changing lesions and Denies rash Neuro Denies abnormal gait and Denies lack of coordination Physical exam (Primary Care) Vital Signs: Last Vital Signs BP 112/76 04/12/24 07:39 BMI result Body Mass Index 25.1 Tobacco/Smoking Status: Tobacco use Status Tobacco use date assessed 04/12/24 04/12/24 07:43 Patient Tobacco Use Status Former Tobacco user 04/12/24 07:38 e-Cigarette/Vaping Use Former Use 04/12/24 07:38 PHQ-9: PHQ-9 Score PHQ-9: Total score 0 04/12/24 07:43 Depression Screening Interpretation: Negative Thrive Assessment: Date of Thrive Assessment Date Thrive assessed 04/12/24 04/12/24 07:43 Currently or been in a relationship where the following occur: No concerns reported HENMI Head: Yes normal to inspection, Yes normocephalic and Yes atraumatic Ears: external ears normal Eyes General: appearance normal, both eyes and all related structures Eyelids: Yes eyelids normal Conjunctivae: conjunctivae normal Neck Neck: Yes normal visual inspection and Yes supple Resp Effort & Inspection: normal respiratory effort Auscultation: clear to auscultation bilaterally Cardio Jugular venous distension: no JVD Rate: regular rate Rhythm: regular rhythm Heart sounds: S1 normal heart sound present and S2 normal heart sound present GI Inspection: Yes normal to inspection Palpation (GI): Soft to palpation and nontender Auscultation: normal bowel sounds Skin General skin exam: no rashes or lesions noted Neuro General: no focal motor deficits Extrem General: Yes full ROM Psych Appearance: grossly normal Assessment and Plan Assessment & Plan (1) Encounter for physical examination: Code(s): Z00.00 - Encounter for general adult medical examination without abnormal findings Plan: Repeat in a year. (2) Palpitations: Code(s): R00.2 - Palpitations Plan: Labs ordered. (3) Hypovitaminosis D: Code(s): E55.9 - Vitamin D deficiency, unspecified Plan: Vitamin-D levels order. Orders: Orders Vitamin B12 and Folate Today E53.8 - Deficiency of other specified B group vitamins Complete Blood Count Auto Diff Today D64.9 - Anemia, unspecified, E53.8 - Deficiency of other specified B group vitamins Lipid Panel Today E78.5 - Hyperlipidemia, unspecified, Z00.00 - Encounter for general adult medical examination without abnormal findings Thyroid Stimulating Hormone Today R00.2 - Palpitations IRON PROFILE Today D64.9 - Anemia, unspecified, E53.8 - Deficiency of other specified B group vitamins Comprehensive [place]. Panel Fast Today Z00.00 - Encounter for general adult medical examination without abnormal findings Vitamin D 25-OH Total Today E55.9 - Vitamin D deficiency, unspecified Coding Level of Care Code Est Pt Level 3 (99235) Est Pt Prev Care 18-39y(31542) Diagnoses Encounter for physical examination Z00.00 Palpitations R00.2 Hypovitaminosis D E55.9 Additional Codes FIONA-7 Assessment Billing - FIONA-7 Assessment Tool: FIONA-7 Assessment 51930 ([id number]) Time Spent (min) 33
[2024-04-12 07:39] VITALS: BP 112/76; BMI 25.1
== END 2024-04-12 08:03 | disposition home or self-care (01) ==
PROVIDERS: PCP Internal Medicine; Visit Provider Internal Medicine
DX: Z00.00 Encounter for general adult medical examination without abnormal findings (principal); R00.2 Palpitations; E55.9 Vitamin D deficiency, unspecified
CPT/HCPCS: 99213; 99395

== ENCOUNTER 2024-04-12 08:09 | Outpatient (REF) | payer OTHER, SELFPAY ==
[2024-04-12 08:23] LABS: MANUAL DIFF FLAG NO
[2024-04-12 09:35] LABS: Basophils Percent Auto 0.6 % (0-2); Eosinophils Absolute Auto 0.2 X10*3/uL (0.0-0.4); Eosinophils Percent Auto 2.4 % (0-4); Hematocrit 37.2 % (37.0-47.0); Hemoglobin 12.4 g/dl (12.0-16.0); Imm Gran Abs Auto 0.01 X10*3/uL (0.00-0.03); Imm Gran Pct Auto 0.1 % (0.0-0.4); Lymphocytes Absolute Auto 2.2 X10*3/uL (1.2-4.9); Mean Corpuscular HGB Conc 33.3 g/dl (31.0-35.0); Mean Corpuscular Hemoglobin 31.2 pg (27.0-33.0); Mean Corpuscular Volume 93.5 fL (80.0-98.0); Mean Platelet Volume 11.4 fL (9.4-12.3); Monocytes Absolute Auto 0.4 X10*3/uL (0.1-1.2); Neutrophils Absolute Auto 4.2 x10*3/uL (2.0-8.3); Neutrophils Percent Auto 59.9 % (45-73); Platelet Count 261 X10*3/uL (160-400); Red Blood Count 3.98 X10*6/uL (4.20-5.50); Red Cell Distribution Width 12.2 % (11.0-16.0)
[2024-04-12 10:43] LABS: Alanine Aminotransferase 13 U/L (0-31); Albumin Level 4.2 g/dL (3.5-5.0); Alkaline Phosphatase 43 U/L (39-117); Anion Gap 12 (12-20); Aspartate Amino Transferase 12 U/L (5-31); Bilirubin Total 0.3 mg/dL (0.0-1.0); Blood Urea Nitrogen 15 mg/dL (9-16); Calcium 9.4 mg/dL (8.4-10.2); Carbon Dioxide 23 mmol/L (22-29); Chloride 108 mmol/L (96-108); Cholesterol 148 mg/dL (<200); Estimated Glomerular Filt Rate > 60; Glucose Fasting 80 mg/dL (60-99); HDL Cholesterol 48 mg/dL (>40); Iron 79 mcg/dL (30-160); LDL Cholesterol Calculated 90 mg/dL (<100); Percent Iron Saturation 26 % (15-50); Sodium 139 mmol/L (135-145); Thyroid Stimulating Hormone 0.47 uIU/mL (0.32-4.0); Total Iron Binding Capacity 301 mcg/dL (228-428); Total Protein 7.1 g/dL (6.5-8.0); Triglycerides 52 mg/dL (<150); Unsaturated Iron Binding 222 ug/dL; Vitamin D 25-OH Total 37.1 ng/mL (>30)
[2024-04-12 10:57] LABS: Folate 13.4 ng/mL (> or = 4.0); Vitamin B12 552 pg/mL (200-900)
== END 2024-04-12 08:10 | disposition home or self-care (01) ==
LOC: HO.LAB 08:09
PROVIDERS: PCP Internal Medicine; Visit Provider Internal Medicine
DX: Z00.00 Encounter for general adult medical examination without abnormal findings (principal); E53.8 Deficiency of other specified B group vitamins; D64.9 Anemia, unspecified; E78.5 Hyperlipidemia, unspecified; R00.2 Palpitations; E55.9 Vitamin D deficiency, unspecified
CPT/HCPCS: 36415; 80053; 80061; 82306; 82607; 82746; 83540; 84443; 85025

== ENCOUNTER 2024-05-11 16:30 | Outpatient (REF) | payer OTHER, SELFPAY ==
--- NOTE | ~2024-05-11 | XR_ITS ---
EXAMINATION: XR KNEE LEFT 3 VIEWS CLINICAL INFORMATION: Unspecified injury of left lower leg, initial encounter S89.92XA. COMPARISON: XR Left Knee 10/06/2018 TECHNIQUE: AP, lateral and sunrise views of the left knee. FINDINGS: No fracture or joint effusion. Alignment is anatomic. Joint spaces are maintained. No abnormal soft tissue calcification. XR/XR knee LT 3V IMPRESSION: Normal left knee. No significant interval change compared to 10/06/2018. Electronically signed by: Yeimi Grace DO 07/25/2024 04:26 PM EST IS[facility]
== END 2024-05-11 16:31 | disposition home or self-care (01) ==
LOC: HO.XRAY 16:30
PROVIDERS: PCP Internal Medicine; Visit Provider Physician Assistant
DX: S89.92XA Unspecified injury of left lower leg, initial encounter (principal)
CPT/HCPCS: 73562

== ENCOUNTER 2024-09-14 09:12 | Outpatient (AMB) | payer OTHER, SELFPAY ==
--- NOTE | 2024-09-14 09:16 | MHC.OFFVIS ---
Vital Signs 09/14/24 09:17 Height 5 ft 5 in Weight 150 lb BMI 25.0 Intake Visit Reasons: Left knee pain and giving way Intake Note: Maral is a 28 year old female who presents with complaints of progressively worsening left knee pain and giving way. The patient states that left knee approximately 6 months ago. She was running and jumping when she twisted her knee and had acute onset of pain. Most of the pain is along the anterior and medial aspect of her knee. She has failed the last 6 weeks of conservative treatment which has included physical therapy exercises, Tylenol and anti-inflammatory medicines. She states that her left knee will give out several times per day. She has had difficulty exercising because of her pain and mechanical symptoms. Allergies No Known Allergies Allergy (Verified 09/14/24 09:17) [facility] Medical History Lumbar pain Hypovitaminosis D Screening for diabetes mellitus Shaky ADHD Allergic rhinitis Insomnia Surgical History No pertinent past surgical history Family History Father No problems noted. Mother Alive and well Osteoporosis Maternal Grandmother Diabetes Maternal Grandfather Diabetes Paternal Grandmother Diabetes Hypertension Paternal Grandfather Diabetes Hypertension Paternal Aunt Thyroid cancer Family/Other Anxiety Social History Housing: House Alcohol intake: never Patient Tobacco Use Status: Former Tobacco user e-Cigarette/Vaping Use: Former Use Second Hand Smoke Exposure: No service: No Current occupational status: employed and student Current occupational exposures/hazards: No Cognitive needs: No Hearing needs: No Vision needs: Yes Female Reproductive History Menstrual Age of Menarche: 9 Physical Exam Vital Signs: BMI result Body Mass Index 25.0 Const Other: Well-nourished well-developed very friendly female awake alert and oriented x3 in no acute distress Extrem Other: Bilateral lower extremity examination shows good capillary refill, no skin lesions noted, normal sensation light touch Left knee examination shows a minimal effusion, minimal crepitus with range of motion, tenderness along her medial joint line, positive Merissa's test, no instability Results Reviewed Results Reviewed: Standing full weight-bearing X-rays of the patient's left knee show minimal joint space narrowing, no acute bony abnormalities Assessment & Plan Assessment & Plan (1) Tear of medial meniscus of left knee: Code(s): S83.242A - Other tear of medial meniscus, current injury, left knee, initial encounter Category: Medical Plan Ms. Fortunato Romero presents with progressively worsening left knee pain and mechanical symptoms most likely due to a medial meniscus tear. Thus, I will send the patient for an MRI of her left knee for further evaluation. I will see her back once the MRI is completed to discuss the findings and treatment options. Feel free to call me at any time should questions regarding her orthopedic management arise. I spent 21 minutes in reviewing the patient's records and imaging studies, seeing the patient and documenting in the medical record. Orders: Orders MR knee LT wo con Today S83.242A - Other tear of medial meniscus, current injury, left knee, initial encounter Coding Level of Care Code New Pt Level 3 (45454) Complex EM visit Add On G2211 Diagnoses Tear of medial meniscus of left knee S83.242A
[2024-09-14 09:17] VITALS: BMI 25.0
== END 2024-09-14 09:22 | disposition home or self-care (01) ==
PROVIDERS: PCP Internal Medicine; Visit Provider Orthopaedic Surgery
DX: S83.242A Other tear of medial meniscus, current injury, left knee, initial encounter (principal)
CPT/HCPCS: 99203; G2211

== ENCOUNTER → 2024-09-14 09:12 | Outpatient (BNVA) | payer OTHER, SELFPAY | PROVIDERS: PCP Internal Medicine; Visit Provider Orthopaedic Surgery | DX: S83.242A Other tear of medial meniscus, current injury, left knee, initial encounter (principal) | CPT/HCPCS: 99202 ==

== ENCOUNTER 2024-10-01 18:41 | Outpatient (REF) | payer OTHER, SELFPAY ==
--- NOTE | ~2024-10-01 | MR_ITS ---
CLINICAL HISTORY: S83.242A - Other tear of medial meniscus, current injury, left knee, ini... MR left knee without gadolinium Comparison: None Findings: No acute fracture or pathologic bone lesion. Small joint effusion. Cruciate and collateral ligaments are intact. Patellar retinacula and iliotibial band are intact. Quadriceps, patellar, popliteus, and flexor tendons are intact. There are no meniscal tears. IMPRESSION: Small simple appearing joint effusion. Otherwise unremarkable knee MRI. This document has been electronically signed by: Omar Albright MD on 10/03/2024 08:51:37
== END 2024-10-01 18:42 | disposition home or self-care (01) ==
LOC: HO.MRI 18:41
PROVIDERS: PCP Internal Medicine; Visit Provider Orthopaedic Surgery
DX: S83.242A Other tear of medial meniscus, current injury, left knee, initial encounter (principal)
CPT/HCPCS: 73721

== ENCOUNTER → 2024-10-01 18:41 | Outpatient (BNV) | payer OTHER, SELFPAY | PROVIDERS: PCP Internal Medicine; Visit Provider Specialist | DX: S83.242A Other tear of medial meniscus, current injury, left knee, initial encounter (principal) | CPT/HCPCS: 73721 ==

== ENCOUNTER 2024-10-19 10:11 | Outpatient (AMB) | payer OTHER, SELFPAY ==
--- NOTE | 2024-10-19 10:17 | A.OFFVIS_ITS ---
Vital Signs 10/19/24 10:18 Height 5 ft 5 in Weight 150 lb BMI 25.0 Intake Visit Reasons: OV- Left knee MRI review Intake Note: Maral is a 29 year old female who presents today for review of her left knee MRI results. She states that her left knee discomfort has improved significantly since her last visit. She does not take any medicines for discomfort. She denies any locking or giving way. Allergies No Known Allergies Allergy (Verified 10/19/24 10:18) Medication List - Last Reconciled 10/19/24 by Miko Patterson MD No Known Home Meds [facility] Medical History Lumbar pain Hypovitaminosis D Screening for diabetes mellitus Shaky ADHD Allergic rhinitis Insomnia Surgical History No pertinent past surgical history Family History Father No problems noted. Mother Alive and well Osteoporosis Maternal Grandmother Diabetes Maternal Grandfather Diabetes Paternal Grandmother Diabetes Hypertension Paternal Grandfather Diabetes Hypertension Paternal Aunt Thyroid cancer Family/Other Anxiety Social History Housing: House Alcohol intake: never Patient Tobacco Use Status: Former Tobacco user e-Cigarette/Vaping Use: Former Use Second Hand Smoke Exposure: No service: No Current occupational status: employed and student Current occupational exposures/hazards: No Cognitive needs: No Hearing needs: No Vision needs: Yes Female Reproductive History Menstrual Age of Menarche: 9 Physical Exam Vital Signs: BMI result Body Mass Index 25.0 Const Other: Well-nourished well-developed very friendly female awake alert and oriented x3 in no acute distress Extrem Other: Bilateral lower extremity examination shows good capillary refill, no skin lesions noted, normal sensation light touch Left knee examination shows a minimal effusion, no crepitus with range of motion, negative Merissa's test Results Reviewed Results Reviewed: MRI of the patient's left knee shows no evidence of meniscus or ligamentous injury Assessment & Plan Assessment & Plan (1) Left knee pain: Code(s): M25.562 - Pain in left knee Category: Medical Plan Ms. Fortunato Romero presents with minimal intermittent discomfort in her left knee. At this point the patient's symptoms are improving with activity modifications. We will hold off on a cortisone injection. She will follow up with me on an as-needed basis should her symptoms worsen in any way. I spent 22 minutes in reviewing the patient's records and imaging studies, seeing the patient and documenting in the medical record. Coding Level of Care Code Est Pt Level 3 (34196) Complex EM visit Add On G2211 Diagnoses Left knee pain M25.562
[2024-10-19 10:18] VITALS: BMI 25.0
--- OUTSIDE RECORDS SUMMARY | 2024-10-19 11:40 | XMS_ITS | Encounter Summary ---
Author Organization [facility] Address [address] [place] [address] Phone Care Team Providers Care Service Worker Name Role Phone Amanda Castrejon MD Primary Care Provider [phone] Encounter Details Date Type Department Care Team (Late st Contact Info) Description 07/29/2012 Documentation [facility] [place] [address] [place] [address] Family Medicine, Physician [address] [place], [place] [phone] Social History Tobacco Use Types Packs/Day Years Used Date Smoking Tobacco: Never Assessed Comments Unknown Sex and Gender Information Value Date Recorded Sex Assigned at Not on file Legal Sex Female 4:43 PM EDT Gender Identity Not on file Sexual Orientation Not on file documented as of this encounter Plan of Treatment Not on file documented as of this encounter Visit Diagnoses Not on filedocumented in this encounter Care Teams Service Worker Relationship Specialty Start Date End Date Amanda Castrejon MD [address] [place] [address] UNRULY Andrew [address] PCP - General 03/20/17 01/22/23 documented as of this encounter
--- OUTSIDE RECORDS SUMMARY | 2024-10-19 11:40 | XMS_ITS | Encounter Summary ---
Author Organization [facility] Address [address] [place] [address]647 Phone Care Team Providers Care Hot End Operator Name Role Phone Amanda Castrejon MD Primary Care Provider Encounter Details Date Type Department Care Team (Late st Contact Info) Description 03/17/2011 Documentation [facility] [place] [address] [place] [address] Family Medicine, Physician [address] [place], [place] [phone] Social History Tobacco Use Types Packs/Day Years [...] on filedocumented in this encounter Care Teams Hot End Operator Relationship Specialty Start Date End Date Amanda Castrejon MD [address] [place] [address] UNRULY Andrew [address] PCP - General 03/20/17 01/22/23 documented as of this encounter
--- OUTSIDE RECORDS SUMMARY | 2024-10-19 11:40 | XMS_ITS | Encounter Summary ---
Author Organization [facility] Address [address] [place] [address] Phone Care Team Providers Care Brush And Broom Clipper Name Role Phone Amanda Castrejon MD Primary Care Provider [phone] Encounter Details Date Type Department Care Team (Late st Contact Info) Description 07/29/2012 Documentation [facility] [place] [address] [place] [address] Family Medicine, Physician [address] [place], [place] [phone] Social History Tobacco Use Types Packs/Day Years [...] on filedocumented in this encounter Care Teams Brush And Broom Clipper Relationship Specialty Start Date End Date Amanda Castrejon MD [address] [place] [address] UNRULY Andrew [address] PCP - General 03/20/17 01/22/23 documented as of this encounter
--- OUTSIDE RECORDS SUMMARY | 2024-10-19 11:40 | XMS_ITS | Encounter Summary ---
Author Organization [facility] Address [address] [place] [address] Phone Care Team Providers Care Manager Management Name Role Phone Amanda Castrejon MD Primary Care Provider Encounter Details Date Type Department Care Team (Late st Contact Info) Description 07/29/2012 Documentation [facility] [place] [address] [place] [address] Family Medicine, Physician [address] [employer], [place] [phone] Social History Tobacco Use Types Packs/Day Years [...] on filedocumented in this encounter Care Teams Manager Management Relationship Specialty Start Date End Date Amanda Castrejon MD [address] [place] [address] UNRULY Andrew [address] PCP - General 03/20/17 01/22/23 documented as of this encounter
--- OUTSIDE RECORDS SUMMARY | 2024-10-19 11:40 | XMS_ITS | Encounter Summary ---
Author Organization [facility] Address [address] [place] [address] Phone Care Team Providers Care Gift Manager Name Role Phone Amanda Castrejon MD Primary Care Provider Encounter Details Date Type Department Care Team (Late st Contact Info) Description 07/29/2012 Documentation [place] [facility] [address] [place] [address] Family Medicine, Physician [address] [place], [place] [phone] Social History Tobacco Use Types Packs/Day Years [...] on filedocumented in this encounter Care Teams Gift Manager Relationship Specialty Start Date End Date Amanda Castrejon MD [address] [place] [address] UNRULY Andrew [address] PCP - General 03/20/17 01/22/23 documented as of this encounter
--- OUTSIDE RECORDS SUMMARY | 2024-10-19 11:40 | XMS_ITS | Encounter Summary ---
Author Organization [facility] Address [address] [place] [address] Phone Care Team Providers Care Branch Chief Name Role Phone Amanda Castrejon MD Primary Care Provider Encounter Details Date Type Department Care Team (Late st Contact Info) Description 03/26/2017 Conversion Encounter [facility] [place] [address] [place] [address] Social History Tobacco Use Types Packs/Day Years [...] on filedocumented in this encounter Care Teams Branch Chief Relationship Specialty Start Date End Date Amanda Castrejon MD [address] [place] [address] PCP - General 03/20/17 01/22/23 documented as of this encounter
--- OUTSIDE RECORDS SUMMARY | 2024-10-19 11:40 | XMS_ITS | Encounter Summary ---
Author Organization [facility] Address [address] [place] [address] Phone Care Team Providers Care Senior Marketing Engineer Name Role Phone Amanda Castrejon MD Primary Care Provider Encounter Details Date Type Department Care Team (Late st Contact Info) Description 01/28/2016 Documentation [facility] [place] [address] [place] [address] Family Medicine, Physician [address] [place], [place] [phone] Social History Tobacco Use Types Packs/Day Years [...] on filedocumented in this encounter Care Teams Senior Marketing Engineer Relationship Specialty Start Date End Date Amanda Castrejon MD [address] [place] [address] UNRULY Andrew [address] PCP - General 03/20/17 01/22/23 documented as of this encounter
--- OUTSIDE RECORDS SUMMARY | 2024-10-19 11:40 | XMS_ITS | Encounter Summary ---
Author Organization [facility] Address [address] [place] [address] Phone Care Team Providers Care Acid Correction Hand Name Role Phone Amanda Castrejon MD Primary Care Provider Encounter Details Date Type Department Care Team (Late st Contact Info) Description 03/17/2011 Documentation [facility] [place] [address] [place] [address] Family Medicine, Physician [address] [place], [place] [phone] Social History Tobacco Use Types Packs/Day Years [...] on filedocumented in this encounter Care Teams Acid Correction Hand Relationship Specialty Start Date End Date Amanda Castrejon MD [address] [place] [address] UNRULY Andrew [address] PCP - General 03/20/17 01/22/23 documented as of this encounter
--- OUTSIDE RECORDS SUMMARY | 2024-10-19 11:40 | XMS_ITS | Encounter Summary ---
Author Organization [facility] Address [address] [place] [address] Phone Care Team Providers Care Fryer Line Helper Name Role Phone Amanda Castrejon MD Primary Care Provider Encounter Details Date Type Department Care Team (Late st Contact Info) Description 06/05/[address] [facility] [place] [address] [place] [address] Family Medicine, Physician [address] [place], [place] [phone] Social History Tobacco Use Types Packs/Day Years [...] on filedocumented in this encounter Care Teams Fryer Line Helper Relationship Specialty Start Date End Date Amanda Castrejon MD [address] [place] [address] UNRULY Andrew [address] PCP - General 03/20/17 01/22/23 documented as of this encounter
--- OUTSIDE RECORDS SUMMARY | 2024-10-19 11:40 | XMS_ITS | Encounter Summary ---
Author Organization [facility] Address [address] [place] [address] Phone Care Team Providers Care Curing Press Maintainer Name Role Phone Amanda Castrejon MD Primary Care Provider Encounter Details Date Type Department Care Team (Late st Contact Info) Description 03/17/2011 Documentation [facility] [place] [address] [place] [address] Family Medicine, Physician [address] [place], [place] [phone] Social History Tobacco Use Types Packs/Day Years [...] on filedocumented in this encounter Care Teams Curing Press Maintainer Relationship Specialty Start Date End Date Amanda Castrejon MD [address] [place] [address] UNRULY Andrew [address] PCP - General 03/20/17 01/22/23 documented as of this encounter
--- OUTSIDE RECORDS SUMMARY | 2024-10-19 11:40 | XMS_ITS | Encounter Summary ---
Author Organization [facility] Address [address] [place] [address] Phone Care Team Providers Care Reiki Practitioner Name Role Phone Amanda Castrejon MD Primary Care Provider Encounter Details Date Type Department Care Team (Late st Contact Info) Description 12/17/2009 Documentation [facility] [address] [place] [address] Family Medicine, Physician [address] [place], [place] [phone] Social History Tobacco Use Types Packs/Day Years [...] on filedocumented in this encounter Care Teams Reiki Practitioner Relationship Specialty Start Date End Date Amanda Castrejon MD [address] [place] [address] UNRUL[place] Andrew [address] PCP - General 03/20/17 01/22/23 documented as of this encounter
--- OUTSIDE RECORDS SUMMARY | 2024-10-19 11:40 | XMS_ITS | Clinical Summary ---
Author Organization [facility] Address [address] [place] [address] Phone Care Team Providers Care Facilities Supervisor Name Role Phone Unavailable Primary Care Provider Unavailabl e Immunizations Immunization Administration Dates Next Due DTaP 5 10/16/1999, 7,05/17/1996, 996,1995 HPV, Quadrivalent 07/28/2012,03/14/2011,03/13/20 10 Hep A, ped/adol 03/14/2011 Hep B, ped/adol 05/17/1996,02/10/1996,1995 Hib (PRP-T) 04/06/1997, 6,02/10/1996, 996 IPV 10/15/1999, 6,02/10/1996, 996 Influenza Split 07/28/2012 MMR 10/15/1999,10/10/1996 Meningococcal Conj (Menactra) MCV4P 2007 Tdap 2007 Varicella 12/15/2008,08/13/2006 Family History Relation Name Status Comments Father Alive Father: Alive a nd well Mother Alive Mother: Alive a nd well Other 1 half sibling: S trabismus Other 2 Alive grandmother: Di abetes Obesity Social History Tobacco Use Types Packs/Day Years Used Date Smoking Tobacco: Never Assessed Comments Unknown Sex and Gender Information Value Date Recorded Sex Assigned at Not on file Legal Sex Female 4:43 PM EDT Gender Identity Not on file Sexual Orientation Not on file Last Filed Vital Signs Vital Sign Reading Time Taken Comments Blood Pressure 96/58 07/28/2012 12:00 AM EST Pulse 76 03/21/2011 12:00 AM EDT Temperature 36.6 ??C (97.9 ??F) 05/25/2012 12:00 AM E DT Respiratory Rate - - Oxygen Saturation - - Inhaled Oxygen Concentration - - Weight 66.2 kg (146 lb) 07/28/2012 12:00 AM EST Height 163.8 cm (5' 4.5 ) 07/28/2012 12:00 AM ES T Body Mass Index 24.67 07/28/2012 12:00 AM EST Plan of Treatment Health Maintenance Due Date Last Done Comments Hepatitis A Vaccines (2 of 2 - 2-dose series) 09/14/2011 03/14/2011 DTaP,Tdap,and Td Vaccines (7 - Td or Tdap) 2017 2007, 10/16/1999, 04/06/1997, Additional history exists Influenza Vaccines (#1) 2024 07/28/2012 COVID-19 Vaccine ( season) 2024 Hepatitis B Vaccines Completed 05/17/1996, 02/10/1996, 1995 HIB Vaccines Completed 04/06/1997, 03/1996, 02/10/1996, Additional history exists IPV Vaccines Completed 10/15/1999, 03/1996, 02/10/1996, Additional history exists MMR Vaccines Completed 10/15/1999, 10/10/1996 Meningococcal Vaccine Aged Out 2007 No alvino yolanda eligible based on patient's age to complete this topic Varicella Vaccines Completed 12/15/2008, 08/13/2006 HPV Vaccines Completed 07/28/2012, 12/2010, 03/13/2010 Men B Vaccine Aged Out No longer elig ible based on patient's age to complete this topic Pneumococcal Vaccine Aged Out No long er eligible based on patient's age to complete this topic
== END 2024-10-19 10:33 | disposition home or self-care (01) ==
LOC: HO.HOS 10:12
PROVIDERS: PCP Internal Medicine; Visit Provider Orthopaedic Surgery
DX: M25.562 Pain in left knee (principal)
CPT/HCPCS: 99213

== ENCOUNTER → 2024-10-19 10:11 | Outpatient (BNVA) | payer OTHER, SELFPAY | PROVIDERS: PCP Internal Medicine; Visit Provider Orthopaedic Surgery | DX: M25.562 Pain in left knee (principal) | CPT/HCPCS: 99212 ==

== ENCOUNTER 2025-06-30 12:29 | Outpatient (REF) | payer OTHER, SELFPAY ==
--- OUTSIDE RECORDS SUMMARY | 2025-06-30 12:50 | XMS_ITS | Encounter Summary ---
Author Organization [facility] Address [address] [place] [address] Phone Care Team Providers Care Branch Lending Manager Name Role Phone Amanda Castrejon MD Primary Care Provider Encounter Details Date Type Department Care Team (Late st Contact Info) Description 01/28/2016 Documentation [facility] [place] [address] [place] [address] Family Medicine, Physician [address] [place], [place] [phone] Social History Tobacco Use Types Packs/Day Years [...] filedocumented in this encounter Care Teams Branch Lending Manager Relationship Specialty Start Date End Date Amanda Castrejon MD [address] [place] [address] URNULY Andrew [address] PCP - General 03/20/17 01/22/23 documented as of this encounter
--- OUTSIDE RECORDS SUMMARY | 2025-06-30 12:50 | XMS_ITS | Encounter Summary ---
Author Organization [facility] Address [address] [place] [address] Phone Care Team Providers Care Negative Turner Name Role Phone Amanda Castrejon MD Primary Care Provider Encounter Details Date Type Department Care Team (Late st Contact Info) Description 07/29/2012 Documentation [facility] [place] [facility] [place] [address] [place] [address] Family Medicine, Physician [address] [place], [place] [phone] Social History Tobacco Use Types Packs/Day Years [...] on filedocumented in this encounter Care Teams Negative Turner Relationship Specialty Start Date End Date Amanda Castrejon MD [address] [place] [address] UNRULY Andrew [address] PCP - General 03/20/17 01/22/23 documented as of this encounter
--- OUTSIDE RECORDS SUMMARY | 2025-06-30 12:50 | XMS_ITS | Encounter Summary ---
Author Organization [facility] Address [address] [place] [address] Phone Care Team Providers Care Escort Service Attendant Name Role Phone Amanda Castrejon MD Primary Care Provider Encounter Details Date Type Department Care Team (Late st Contact Info) Description 12/17/2009 Documentation [facility] [address] [place] [address] Family Medicine, Physician [address] [place], [place] [phone] Social History Tobacco Use Types Packs/Day Years [...] on filedocumented in this encounter Care Teams Escort Service Attendant Relationship Specialty Start Date End Date Amanda Castrejon MD [address] [place] [address] UNRULY Andrew [address] PCP - General 03/20/17 01/22/23 documented as of this encounter
--- OUTSIDE RECORDS SUMMARY | 2025-06-30 12:50 | XMS_ITS | Encounter Summary ---
Author Organization [facility] Address [address] [place] [address] Phone Care Team Providers Care Privacy Attorney Name Role Phone Amanda Castrejon MD Primary Care Provider Encounter Details Date Type Department Care Team (Late st Contact Info) Description 06/05/2011 Documentation [facility] [place] [address] [place] [address] Family Medicine, Physician [address] [place], [place] [phone] Social History Tobacco Use Types Packs/Day Years [...] on filedocumented in this encounter Care Teams Privacy Attorney Relationship Specialty Start Date End Date Amanda Castrejon MD [address] [place] [address] UNRUL[place] Andrew [address] PCP - General 03/20/17 01/22/23 documented as of this encounter
--- OUTSIDE RECORDS SUMMARY | 2025-06-30 12:50 | XMS_ITS | Encounter Summary ---
Author Organization [facility] Address [address] [place] [address] Phone Care Team Providers Care Epic Radiant Analyst Name Role Phone Amanda Castrejon MD Primary Care Provider Encounter Details Date Type Department Care Team (Late st Contact Info) Description 03/17/2011 Documentation [facility] [place] [address] [place] [address] Family Medicine, Physician [address] [place], [place] [phone] Social History Tobacco Use Types Packs/Day Years [...] on filedocumented in this encounter Care Teams Epic Radiant Analyst Relationship Specialty Start Date End Date Amanda Castrejon MD [address] [place] [address] UNRULY Andrew [address] PCP - General 03/20/17 01/22/23 documented as of this encounter
--- OUTSIDE RECORDS SUMMARY | 2025-06-30 12:50 | XMS_ITS | Encounter Summary ---
Author Organization [facility] Address [address] [place] [address] Phone Care Team Providers Care Lever Operator Name Role Phone Aamnda Castrejon MD Primary Care Provider [phone] Encounter Details Date Type Department Care Team (Late st Contact Info) Description 07/29/2012 Documentation [facility] [place] [address] [place] [address] Family Medicine, Physician [address] [place], [place] [phone] Social History Tobacco Use Types Packs/Day Years [...] on filedocumented in this encounter Care Teams Lever Operator Relationship Specialty Start Date End Date Amanda Castrejon MD [address] [place] [address] UNRUL[place] Andrew [address] PCP - General 03/20/17 01/22/23 documented as of this encounter
--- OUTSIDE RECORDS SUMMARY | 2025-06-30 12:50 | XMS_ITS | Encounter Summary ---
Author Organization [facility] Address [address] [place] [address] Phone Care Team Providers Care Shredder Operator Name Role Phone Amanda Castrjeon MD Primary Care Provider Encounter Details Date Type Department Care Team (Late st Contact Info) Description 07/29/2012 Documentation [facility] [place] Family Medicine [address] [place] [address] Family Medicine, Physician [address] [place], [place] [phone] Social History Tobacco Use Types Packs/Day Years [...] on filedocumented in this encounter Care Teams Shredder Operator Relationship Specialty Start Date End Date Amanda Castrejon MD [address] [place] [address] UNRUL[place] Andrew [address] PCP - General 03/20/17 01/22/23 documented as of this encounter
--- OUTSIDE RECORDS SUMMARY | 2025-06-30 12:50 | XMS_ITS | Clinical Summary ---
Author Organization [facility] Address [address] [place] [address] Phone Care Team Providers Care Drum Sprayer Name Role Phone Unavailable Primary Care Provider [...] 76 03/21/2011 12:00 AM EDT Temperature 36.6 C (97.9 F) 05/25/2012 12:00 AM EDT Respiratory Rate - - Oxygen Saturation - [...] 04/06/1997, Additional history exists Influenza Vaccines (#1) 2025 07/28/2012 COVID-19 Vaccine (2024- season) 2025 Hepatitis B Vaccines Completed 05/17/1996, 02/10/1996, 1995 [...]
--- OUTSIDE RECORDS SUMMARY | 2025-06-30 12:50 | XMS_ITS | Encounter Summary ---
Author Organization [facility] Address [address] [place] [address] Phone Care Team Providers Care Forestry Contractor Name Role Phone Amanda Castrejon MD Primary Care Provider Encounter Details Date Type Department Care Team (Late st Contact Info) Description 03/17/2011 Documentation [facility] [place] [address] [place] [address] Family Medicine, Physician [address] [place], [place] [phone] Social History Tobacco Use Types Packs/Day Years [...] on filedocumented in this encounter Care Teams Forestry Contractor Relationship Specialty Start Date End Date Amanda Castrejon MD [address] [place] [address] UNRULY Andrew [address] PCP - General 03/20/17 01/22/23 documented as of this encounter
--- OUTSIDE RECORDS SUMMARY | 2025-06-30 12:50 | XMS_ITS | Encounter Summary ---
Author Organization [facility] Address [address] [place] [address] Phone Care Team Providers Care Junior High Math Teacher Name Role Phone Amanda Castrejon MD Primary Care Provider Encounter Details Date Type Department Care Team (Late st Contact Info) Description 03/26/2017 Conversion Encounter [facility] [place] [address] [place] [address] Social History Tobacco Use Types Packs/Day Years [...] on filedocumented in this encounter Care Teams Junior High Math Teacher Relationship Specialty Start Date End Date Amanda Castrejon MD [address] [place] [address] PCP - General 03/20/17 01/22/23 documented as of this encounter
--- OUTSIDE RECORDS SUMMARY | 2025-06-30 12:50 | XMS_ITS | Encounter Summary ---
Author Organization [facility] Address [address] [place] [address] Phone Care Team Providers Care Knuckle Bender Name Role Phone Amanda Castrejon MD Primary Care Provider Encounter Details Date Type Department Care Team (Late st Contact Info) Description 07/29/2012 Documentation [facility] [place] [address] [place] [address] Family Medicine, Physician [address] [place], [place] [phone] Social History Tobacco Use Types Packs/Day Years [...] on filedocumented in this encounter Care Teams Knuckle Bender Relationship Specialty Start Date End Date Amanda Castrejon MD [address] [place] [address] UNRULY Andrew [address] PCP - General 03/20/17 01/22/23 documented as of this encounter
--- OUTSIDE RECORDS SUMMARY | 2025-06-30 12:50 | XMS_ITS | Encounter Summary ---
Author Organization [facility] Address [address] [place] [address] Phone Care Team Providers Care Statistical Developer Name Role Phone Amanda Castrejon MD Primary Care Provider Encounter Details Date Type Department Care Team (Late st Contact Info) Description 03/17/2011 Documentation [facility] [place] [address] [place] [address] Family Medicine, Physician [address] [place], [place] [phone] Social History Tobacco Use Types Packs/Day Years [...] on filedocumented in this encounter Care Teams Statistical Developer Relationship Specialty Start Date End Date Amanda Castrejon MD [address] [place] [address] UNRULY Andrew [address] PCP - General 03/20/17 01/22/23 documented as of this encounter
[2025-07-01 14:18] LABS: Rubeola IgG (Measles) 96.10 AU/mL
[2025-07-03 09:03] LABS: TS Negative Control Passed; TS Panel A 0; TS Panel B 0; TS Positive Control Passed; TSpotTB Negative (Negative)
== END 2025-06-30 12:30 | disposition home or self-care (01) ==
LOC: HO.LAB 12:29
PROVIDERS: PCP Internal Medicine; Visit Provider Internal Medicine
DX: Z01.84 Encounter for antibody response examination (principal); Z11.1 Encounter for screening for respiratory tuberculosis; Z23 Encounter for immunization
CPT/HCPCS: 36415; 86481; 86735; 86762; 86765; 86787